=== PATIENT | male | born 1990 | race Caucasian/White ===

== ENCOUNTER 2022-08-13 15:18 | Emergency (ER) | payer OTHER ==
[~2022-08-13] VITALS: Ht 190.5 cm; Wt 113.4 kg
[2022-08-13] MEDS ORDERED: LISINOPRIL10 M1 PO (15:37)
[2022-08-13] MEDS ORDERED: BUPROPION HYDR100 M3 PO (15:37)
[2022-08-13] MEDS ORDERED: CONCERTA54 MG PO (15:37)
[2022-08-13] MEDS ORDERED: FLUOXETINE HCL40 MG PO (15:38)
[2022-08-13] MEDS ORDERED: MINIPRESS2 M1 PO (15:38)
[2022-08-13] MEDS ORDERED: TRAZODONE50 MG PO (15:39)
== END 2022-08-13 16:31 | disposition home or self-care (01) ==
LOC: ED 15:18
DX: I10 Essential (primary) hypertension (principal); Z79.899 Other long term (current) drug therapy

== ENCOUNTER 2022-09-29 21:47 | Emergency (ER) | payer OTHER ==
[~2022-09-29] VITALS: Ht 182.8 cm; Wt 104.3 kg
[~2022-09-29 21:47] MED LIST: BUPROPION HYDR100 M3 PO; CONCERTA54 MG PO; FLUOXETINE HCL40 MG PO; LISINOPRIL10 M1 PO; MINIPRESS2 M1 PO; TRAZODONE50 MG PO
[2022-09-29 22:12] LABS: BASO # 0.1 10*3/uL (0.0-0.1); BASO % 0.5 % (0.0-1.0); EOS # 0.1 10*3/uL (0.0-0.4); EOS % 1.3 % (1.0-4.0); HEMATOCRIT 43.4 % (42.0-52.0); LYMPH # 2.2 10*3/uL (1.3-4.4); LYMPH % 23.6 % (27.0-41.0); MEAN CELL VOLUME 82.8 fl (80.0-94.0); MEAN CORPUSCULAR HGB 28.1 pg (27.0-31.0); MEAN CORPUSCULAR HGB CONC 33.9 g/dl (33.0-37.0); MEAN PLATELET VOLUME 10.3 fl (9.6-12.3); MONO # 0.5 10*3/uL (0.1-1.0); MONO % 5.5 % (3.0-9.0); NEUT # 6.6 10*3/uL (2.3-7.9); NEUT % 68.9 % (47.0-73.0); PLATELET COUNT AUTOMATED 278 10*3/uL (130-400); RED BLOOD COUNT 5.24 10*6/uL (4.50-5.90); RED CELL DISTRI WIDTH 12.6 % (0-14.5); WHITE BLOOD COUNT 9.5 10*3/uL (4.8-10.8)
[2022-09-29 22:23] LABS: ACT PARTIAL THROMBO TIME 28.5 SECONDS (20.0-32.1)
[2022-09-29 22:30] LABS: ALKALINE PHOSPHATASE 57 U/L (46-116); BUN 15 mg/dl (9-23); CHLORIDE 107 mmol/L (98-107); POTASSIUM 3.1 mmol/L (3.4-5.1); SGPT/ALT 37 U/L (10-49); TOTAL PROTEIN 7.4 gm/dL (6.0-8.0)
== END 2022-09-29 23:53 | disposition home or self-care (01) ==
LOC: ED 21:47
PROVIDERS: Emergency Medicine
DX: R07.89 Other chest pain (principal); E87.6 Hypokalemia; Z79.899 Other long term (current) drug therapy

== ENCOUNTER 2024-01-12 17:29 | Emergency (ER) | payer BC ==
[~2024-01-12] VITALS: Ht 241.3 cm; Wt 115.7 kg
[2024-01-12] MEDS ORDERED: ASPIRIN ADULT L81 M2 PO (17:40)
[2024-01-12] MEDS ORDERED: NORVASC5 MG PO (17:41)
[2024-01-12] MEDS ORDERED: PROPRANOLOL HCL60 MG PO (17:41)
[2024-01-12] MEDS ORDERED: ROSUVASTATIN CA20 MG PO (17:41)
[2024-01-12] MEDS ORDERED: Ondansetron Hydrochloride 4 MG TAB SL ONE (18:00)
[2024-01-12 18:19] LABS: BASO # 0.1 10*3/uL (0.0-0.1); BASO % 0.6 % (0.0-1.0); EOS # 0.1 10*3/uL (0.0-0.4); EOS % 0.9 % (1.0-4.0); HEMATOCRIT 42.2 % (42.0-52.0); LYMPH % 18.5 % (27.0-41.0); MEAN CELL VOLUME 84.9 fl (80.0-94.0); MEAN CORPUSCULAR HGB 27.6 pg (27.0-31.0); MEAN CORPUSCULAR HGB CONC 32.5 g/dl (33.0-37.0); MEAN PLATELET VOLUME 10.8 fl (9.6-12.3); MONO # 0.5 10*3/uL (0.1-1.0); MONO % 4.2 % (3.0-9.0); NEUT # 8.2 10*3/uL (2.3-7.9); NEUT % 75.6 % (47.0-73.0); PLATELET COUNT AUTOMATED 310 10*3/uL (130-400); RED BLOOD COUNT 4.97 10*6/uL (4.50-5.90); RED CELL DISTRI WIDTH 12.3 % (0-14.5); WHITE BLOOD COUNT 10.8 10*3/uL (4.8-10.8)
[2024-01-12 18:31] LABS: ACT PARTIAL THROMBO TIME 29.3 SECONDS (20.0-32.1)
[2024-01-12 18:41] LABS: BUN 13 mg/dl (9-23); CHLORIDE 107 mmol/L (98-107); POTASSIUM 3.7 mmol/L (3.4-5.1)
== END 2024-01-12 19:30 | disposition home or self-care (01) ==
LOC: ED 17:29
PROVIDERS: Internal Medicine
DX: R07.89 Other chest pain (principal); Z20.822 Contact with and (suspected) exposure to COVID-19; R06.02 Shortness of breath; I25.10 Atherosclerotic heart disease of native coronary artery without angina pectoris; I10 Essential (primary) hypertension